=== PATIENT | male | born 1955 | race Caucasian/White ===

== ENCOUNTER 2024-09-17 09:39 | Inpatient (IN) | payer MEDICARE, SELFPAY ==
--- NOTE | ~2024-09-17 | CT_ITS ---
EXAMINATION: CT ABDOMEN AND PELVIS WITH CONTRAST CLINICAL INFORMATION: Black tarry stools COMPARISON: None available. TECHNIQUE: Multidetector volumetric images were obtained from the superior aspect of the liver through the pubic symphysis following administration 70 mL of Omnipaque 350 intravenous contrast. Sagittal and coronal reformatted images were obtained on the technologist's workstation. Oral contrast: No This CT examination was performed using dose optimization techniques as appropriate, variously including the following: *Automated exposure control *Adjustment of mA and/or kV according to patient size (this includes techniques or standardized protocols for targeted exams where dose is matched to indication/reason for exam; i.e. extremities or head) *Use of iterative reconstruction technique DLP: 1464 mGY*cm FINDINGS: LUNG BASES: Linear density in the region of the minor fissure and right middle lobe could relate to pleural thickening, scarring, and/or subsegmental atelectasis. LIVER, GALLBLADDER, AND BILIARY TREE: Mild diffuse fatty changes present throughout the liver. The gallbladder is unremarkable with no evidence of radiopaque gallstones, gallbladder wall thickening, or obvious pericholecystic inflammatory changes. PANCREAS: Unremarkable. SPLEEN: The spleen is enlarged with a long axis of 17.5 cm ADRENAL GLANDS: Unremarkable. KIDNEYS AND URETERS: The kidneys are normal in size, shape, and attenuation. No hydronephrosis, hydroureter, or calculi seen. No perinephric stranding. BLADDER: Unremarkable. GASTROINTESTINAL TRACT: The region of the gastric antrum and pylorus appears thickened, but this could be due to lack of distention. The small and large bowel are unremarkable. The appendix is unremarkable. ABDOMINAL WALL: 8 mm umbilical hernia contains normal density fat. LYMPH NODES: Normal. VASCULAR: Mild multifocal atherosclerotic calcific lesions are present in the abdominal aorta and common iliac and right common femoral arteries PELVIC VISCERA: Unremarkable. OSSEOUS STRUCTURES: There is bony fusion of the superior ligamentous portion of the right SI joint. There are osteophytes along the rim both acetabular roofs and a small degenerative cyst in the anterior right femoral head neck junction. Lower thoracic and upper lumbar spine shows evidence of syndesmophyte formation. There is also osseous bridging of the tips of the spinous processes at the thoracolumbar junction. CT/CT abdomen pelvis w IV con IMPRESSION: The gastric antrum and pyloric region appears thickened. This could be due to nondistention, but underlying peptic ulcer disease is not ruled out. Splenomegaly Fatty liver There is bony fusion of the upper right SI joint and the tips of the spinous processes at the thoracolumbar junction with evidence of syndesmophytes and bridging osteophytes in the thoracic lumbar spine raising question of ankylosing spondylitis. Fleischner guidelines were followed. Electronically signed by: Jerman Levine MD 09/17/2024 12:53 PM EDT
--- NOTE | ~2024-09-17 | CT_ITS ---
EXAMINATION: CT HEAD WITHOUT IV CONTRAST HISTORY: fall, head injury. TECHNIQUE: Unenhanced helical CT of the head was performed per standard departmental protocol. Coronal and sagittal reformats of the head were also evaluated. One or more of the following techniques was used for dose reduction: Automated exposure control, adjustment of the mA and/or kV according to patient size, use of iterative reconstruction technique. DLP: 779 mGy-cm COMPARISON: There are no prior studies available for comparison. FINDINGS: BRAIN: The brain parenchyma is unremarkable. There is normal villegas/white differentiation. The ventricular system is normal in size and configuration. There is no mass effect or midline shift. No intra- or extra-axial fluid collections are identified. SINUSES: There is debris in the left frontal sinus. There is mucosal thickening in the ethmoid and right sphenoid sinuses. There are polyps versus mucous retention cysts in the bilateral maxillary sinuses. The mastoid air cells and middle ear cavities are well pneumatized. ORBITS: The visualized orbits are unremarkable. BONES/SOFT TISSUES: The extracranial soft tissues are unremarkable. The calvarium is intact. No suspicious lytic or sclerotic lesions. CT/CT head/brain wo IV con IMPRESSION: No acute intracranial abnormality. Electronically signed by: Ludwig Thomas MD 09/17/2024 12:51 PM EDT
--- NOTE | ~2024-09-17 | XR_ITS ---
EXAMINATION: XR CHEST 1 VIEW HISTORY: sob COMPARISON: There are no prior studies available for comparison. FINDINGS: A single AP portable view of the chest performed at 10:26 AM is submitted. There is linear subsegmental atelectasis versus scarring at the right lung base. Additional patchy airspace opacity may be present, although evaluation is limited on this AP portable view. The left lung is clear. There is no pleural effusion, pneumothorax, or pulmonary vascular congestion. The heart is normal in size. There is degenerative disc disease of the spine. XR/XR chest 1V IMPRESSION: Bibasilar subsegmental atelectasis versus scarring. Possible additional airspace opacity at the right lung base. PA and lateral views are recommended when the patient is able. Electronically signed by: Ludwig Thomas MD 09/17/2024 10:43 AM EDT
[2024-09-17 09:48] VITALS: BP 126/77; PULSE 102; RESP 16; TEMP 36.9; O2SAT 99; BMI 32.9
--- NOTE | 2024-09-17 09:53 | ECG_ITS ---
Test Reason : tachy Blood Pressure : */* mmHG Vent. Rate : 104 BPM Atrial Rate : 104 BPM P-R Int : 138 ms QRS Dur : 78 ms QT Int : 322 ms P-R-T Axes : 37 13 42 degrees QTcB Int : 423 ms Sinus tachycardia Otherwise normal ECG No previous ECGs available Referred By: Generic ED Physician Electronically Signed By: LUAN FLORES
--- NOTE | 2024-09-17 10:06 | PC.NURSE ---
patient presented to the ED from home, alert and oriented x3. patient has flu two weeks ago, has been having increased weakness. patient states he had dark tarry stool last night x1 and this mornign x2 with bright red bleeding. patient endorses sob. patient states he had a fall due to on going weakness, noted to have abrasion to left shoulder, patient denies any pain. patient noted to be in sinus tach, rate low 100s. afebrile, rectal temp 98.5. patient skin is pale, cool and diaphoretic. EMS gave 500cc normal saline, thru #20 RAC, additional IV access obtained #18 in LFA, labs drawn and sent.
--- NOTE | 2024-09-17 10:06 | ED.GENADULT ---
HPI - General Adult General Chief complaint: General Medical Stated complaint: WEAK,DARK/TARRY STOOLS,COOL/PALE/SWEATY PER EMS Time Seen by Provider: 09/17/24 10:06 Source: patient, family and EMS Mode of arrival: EMS Limitations: no limitations History of Present Illness ED Provider: HPI narrative: 69-year-old male, not on any medications, remote alcohol use disorder cleaned for the past 9 years, presenting with generalized malaise worse in the past 2 weeks but really in the past few days, also he started noting black tarry stools yesterday and today x2, not on blood thinners, states initial symptoms started a proximally 2 weeks ago with flu-like symptoms and has not really recovered. Presented appearing diaphoretic, pale. Denies abdominal pain, denies chest pain or shortness of breath. No nausea no vomiting reported. Related Data Home Medications ?Medication ?Instructions ?Recorded ?Confirmed No Known Home Meds 09/17/24 09/17/24 Allergies Allergy/AdvReac Type Severity Reaction Status Date / Time No Known Allergies Allergy Verified 09/17/24 09:50 Review of Systems Constitutional: Constitutional: Reports as per [facility] Social History Social History Patient Tobacco Use Status: Never used Tobacco Advance Directives: No Advance Directives Information Provided: Yes Do you have a plan to hurt others: No Plan Nutrition Risks: No Nutritional Risk Physical Exam ED Vital Signs: Vital Signs - 24 hr 09/17/24 09:48 09/17/24 11:16 09/17/24 13:59 Temperature 98.5 F 97.8 F 97.4 F Pulse Rate 102 H 97 89 Respiratory Rate 16 16 20 Blood Pressure 126/77 116/68 116/61 Pulse Oximetry 99 96 96 Oxygen Delivery Method Room Air Room Air Room Air BMI result Body Mass Index 32.9 Const Other: Gen: ?Tired appearing, slightly pale HEENT: Dry oral mucosa, no scleral icterus, conjunctiva not pale Neck: Supple, no LAD CV: RRR, no obvious murmurs appreciated Resp: ?No wheezing rales rhonchi no stridor moving air well Abd: ?Bowel sounds are present, no tenderness no rebound no rigidity, rectal exam: With black tarry stools MSK: FROM, strength 5/5 all extremities Skin: Warm, dry, intact, Neuro: ?Alert and oriented x3, moving upper and lower extremities symmetrically, no obvious facial asymmetry noted Medications Administered Generic Name Dose Route Start Last Admin Trade Name Freq PRN Reason Stop Dose Admin Lactated Ringer's 1,000 mls @ 0 mls/hr 09/17/24 10:45 09/17/24 12:37 Lr IV Infused .Q0M LIU Infusion Wide Open Discontinued Medications Generic Name Dose Route Start Last Admin Trade Name Freq PRN Reason Stop Dose Admin Iohexol 85 ml 09/17/24 11:48 09/17/24 11:49 Iohexol 350 Mg/Ml 100 Ml Infus..Btl IV 09/17/24 11:49 85 ml ONCE ONE Administration Pantoprazole Sodium 40 mg 09/17/24 13:56 09/17/24 14:05 Pantoprazole Sodium 40 Mg/10 Ml Vial IVPUSH 09/17/24 13:57 40 mg ONCE ONE Administration Medical Decision Making Medical Decision Making [facility] Narrative: 10:40 patient presented with a weakness, fall earlier today, there is no evidence of head injury he did have some abrasion to the left shoulder blade area but we will scan his head, obvious black tarry stool on exam, H&H is slightly low, not to the transfusion at this time but we will anticipate that this will trend down, ultimately anticipate admission we will obtain CT to make sure there is no ongoing bleed, we will give fluids, make sure this is not cardiac related. 13:57 patient has remained stable, shows that there may be some evidence for PUD, which correlates to his presentation we will admit for further workup. Differential Diagnosis Differential Diagnoses: The differential diagnosis associated with the presentation includes Dehydration, electrolyte derangements, pneumonia, head injury, upper GI bleed, lower GI bleed Admission/Observation Consideration of admission/observation: Escalation of care including admission/observation considered Lab Data [facility] Lab Attestation statement: I reviewed the patient's lab results. 09/17/24 09:57 09/17/24 10:41 Labs: Lab Results 09/17/24 09/17/24 09/17/24 Range/Units 09:57 10:15 10:41 WBC 6.3 (4.8-10.8) X10*3/uL RBC 3.84 L (4.60-5.80) X10*6/uL Hgb 11.9 L (14.0-18.0) g/dl Hct 33.8 L (42.0-52.0) % MCV 88.0 (80.0-98.0) fL MCH 31.0 (27.0-33.0) pg MCHC 35.2 (31.0-36.0) g/dl RDW 12.7 (11.0-16.0) % Plt Count 60 L (160-400) X10*3/uL MPV 12.9 H (9.4-12.4) fL Immature Gran % (Auto) 0.5 H (0.0-0.4) % Neut % (Auto) 69.2 (45-73) % Lymph % (Auto) 20.3 (20-40) % [place] % (Auto) 9.8 (2-11) % Eos % (Auto) 0.0 (0-4) % Baso % (Auto) 0.2 (0-2) % Lymph # (Auto) 1.3 (1.2-4.9) X10*3/uL [place] # (Auto) 0.6 (0.1-1.2) X10*3/uL Eos # (Auto) 0.0 (0.0-0.4) X10*3/uL Baso # (Auto) 0.0 (0.0-0.2) X10*3/uL Abs Immat Gran (auto) 0.03 (0.00-0.03) X10*3/uL Absolute Neuts (auto) 4.3 (2.0-8.3) x10*3/uL Absolute Nucleated RBC 0.000 (0.0-0.012) X10*3/uL Nucleated RBC % (auto) 0.0 (0.0-0.2) /100WBC Smear Tech's Comments VERIFIED PT 15.5 H (10.9-12.4) SEC INR 1.4 H (0.9-1.1) Sodium 136 (135-145) mmol/L Potassium 4.1 (3.3-5.1) mmol/L Chloride 105 (96-108) mmol/L Carbon Dioxide 19 L (22-29) mmol/L Anion Gap 16 (12-20) BUN 42 H (9-16) mg/dL Creatinine 0.88 (0.5-1.4) mg/dL Estim Creat Clear Calc 88.3 Estimated GFR > 60 Random Glucose 143 H (60-115) mg/dL Lactic Acid 1.8 (0.5-2.0) mmol/L Calcium 7.9 L (8.4-10.2) mg/dL Total Bilirubin 0.6 (0.0-1.0) mg/dL AST 36 (5-37) U/L ALT 19 (0-40) U/L Alkaline Phosphatase 45 (39-117) U/L Troponin I High Sens 3.6 (<3.5-35.0) ng/L Total Protein 5.5 L (6.5-8.0) g/dL Albumin 2.9 L (3.5-5.0) g/dL Procalcitonin 1.68 ng/mL Stool Occult Blood (NEGATIVE) Respiratory Panel Denson Adenovirus (Rapid PCR) (Not Detect.) B.pert (TEM-PCR) (Not Detect.) B.parapertussis DNA PCR (Not Detect.) C. pneumoniae DNA (PCR) (Not Detect.) Coronavirus OC43 (PCR) (Not Detect.) Coronavirus HKU1 (PCR) (Not Detect.) Coronavirus 229E (PCR) (Not Detect.) Coronavirus NL63 (PCR) (Not Detect.) Human Metapneumovir PCR (Not Detect.) Influenza A (RT-PCR) (Not Detect.) Influenza A (H1) PCR (Not Detect.) Influ A (H1/09) PCR (Not Detect.) Influenza A (H3) PCR (Not Detect.) Influenza B (RT-PCR) (Not Detect.) M. pneumoniae (PCR) (Not Detect.) Parainfluenza 1 (PCR) (Not Detect.) Parainfluenza 2 (PCR) (Not Detect.) Parainfluenza 3 (PCR) (Not Detect.) Parainfluenza 4 (PCR) (Not Detect.) RSV (PCR) (Not Detect.) Entero/Rhino (PCR) (Not Detect.) SARS-CoV-2 RNA (RT-PCR) (Not Detect.) Blood Type O Positive Antibody Screen NEGATIVE 09/17/24 09/17/24 Range/Units 10:53 10:54 WBC (4.8-10.8) X10*3/uL RBC (4.60-5.80) X10*6/uL Hgb (14.0-18.0) g/dl Hct (42.0-52.0) % MCV (80.0-98.0) fL MCH (27.0-33.0) pg MCHC (31.0-36.0) g/dl RDW (11.0-16.0) % Plt Count (160-400) X10*3/uL MPV (9.4-12.4) fL Immature Gran % (Auto) (0.0-0.4) % Neut % (Auto) (45-73) % Lymph % (Auto) (20-40) % [place] % (Auto) (2-11) % Eos % (Auto) (0-4) % Baso % (Auto) (0-2) % Lymph # (Auto) (1.2-4.9) X10*3/uL [place] # (Auto) (0.1-1.2) X10*3/uL Eos # (Auto) (0.0-0.4) X10*3/uL Baso # (Auto) (0.0-0.2) X10*3/uL Abs Immat Gran (auto) (0.00-0.03) X10*3/uL Absolute Neuts (auto) (2.0-8.3) x10*3/uL Absolute Nucleated RBC (0.0-0.012) X10*3/uL Nucleated RBC % (auto) (0.0-0.2) /100WBC Smear Tech's Comments PT (10.9-12.4) SEC INR (0.9-1.1) Sodium (135-145) mmol/L Potassium (3.3-5.1) mmol/L Chloride (96-108) mmol/L Carbon Dioxide (22-29) mmol/L Anion Gap (12-20) BUN (9-16) mg/dL Creatinine (0.5-1.4) mg/dL Estim Creat Clear Calc Estimated GFR Random Glucose (60-115) mg/dL Lactic Acid (0.5-2.0) mmol/L Calcium (8.4-10.2) mg/dL Total Bilirubin (0.0-1.0) mg/dL AST (5-37) U/L ALT (0-40) U/L Alkaline Phosphatase (39-117) U/L Troponin I High Sens (<3.5-35.0) ng/L Total Protein (6.5-8.0) g/dL Albumin (3.5-5.0) g/dL Procalcitonin ng/mL Stool Occult Blood POSITIVE (NEGATIVE) Respiratory Panel Denson See Note Adenovirus (Rapid PCR) Not Detected (Not Detect.) B.pert (TEM-PCR) Not Detected (Not Detect.) B.parapertussis DNA PCR Not Detected (Not Detect.) C. pneumoniae DNA (PCR) Not Detected (Not Detect.) Coronavirus OC43 (PCR) Not Detected (Not Detect.) Coronavirus HKU1 (PCR) Not Detected (Not Detect.) Coronavirus 229E (PCR) Not Detected (Not Detect.) Coronavirus NL63 (PCR) Not Detected (Not Detect.) Human Metapneumovir PCR Not Detected (Not Detect.) Influenza A (RT-PCR) Not Detected (Not Detect.) Influenza A (H1) PCR Not Detected (Not Detect.) Influ A (H1/09) PCR Not Detected (Not Detect.) Influenza A (H3) PCR Not Detected (Not Detect.) Influenza B (RT-PCR) Not Detected (Not Detect.) M. pneumoniae (PCR) Not Detected (Not Detect.) Parainfluenza 1 (PCR) Not Detected (Not Detect.) Parainfluenza 2 (PCR) Not Detected (Not Detect.) Parainfluenza 3 (PCR) Not Detected (Not Detect.) Parainfluenza 4 (PCR) Not Detected (Not Detect.) RSV (PCR) Not Detected (Not Detect.) Entero/Rhino (PCR) Not Detected (Not Detect.) SARS-CoV-2 RNA (RT-PCR) Not Detected (Not Detect.) Blood Type Antibody Screen Independent Interpretation I performed an independent interpretation of an: EKG (104, otherwise normal ECG without dysrhythmia, AV nilesh blocks or ST-T changes to suspect underlying ACS, my independent interpretation) and Plain X-Ray (My independent chest xray interpretation: Lungs: Lungs are clear bilaterally without evidence of focal consolidation, pleural effusion, or pneumothorax. Likely atelectatic changes right lower lobe without obvious consolidations) Radiology Impression Discussion of test interpretation with radiology: I have reviewed the radiologist's reading. Radiologist Impression: CT/CT abdomen pelvis w IV con IMPRESSION: The gastric antrum and pyloric region appears thickened. This could be due to nondistention, but underlying peptic ulcer disease is not ruled out. Independent Historian Clinical information obtained from an independent historian. History obtained from or confirmed by: Spouse Discharge Plan Discharge Clinical Impression: Acute upper gastrointestinal bleeding Patient Disposition: Admitted As Inpatient
[2024-09-17 10:10] LABS: Basophils Percent Auto 0.2 % (0-2); Hematocrit 33.8 % (42.0-52.0); Hemoglobin 11.9 g/dl (14.0-18.0); Imm Gran Abs Auto 0.03 X10*3/uL (0.00-0.03); Imm Gran Pct Auto 0.5 % (0.0-0.4); Lymphocytes Absolute Auto 1.3 X10*3/uL (1.2-4.9); Lymphocytes Percent Auto 20.3 % (20-40); MANUAL DIFF FLAG SCAN; Mean Corpuscular HGB Conc 35.2 g/dl (31.0-36.0); Mean Platelet Volume 12.9 fL (9.4-12.4); Monocytes Absolute Auto 0.6 X10*3/uL (0.1-1.2); Monocytes Percent Auto 9.8 % (2-11); Neutrophils Absolute Auto 4.3 x10*3/uL (2.0-8.3); Neutrophils Percent Auto 69.2 % (45-73); Red Blood Count 3.84 X10*6/uL (4.60-5.80); Red Cell Distribution Width 12.7 % (11.0-16.0); SCAN SMEAR FLAG 1; White Blood Count 6.3 X10*3/uL (4.8-10.8)
[2024-09-17 10:12] LABS: Platelet Count 60 X10*3/uL (160-400)
[2024-09-17 10:25] LABS: Lactic Acid 1.8 mmol/L (0.5-2.0)
[2024-09-17 10:38] LABS: INTERNATIONAL NORM RATIO 1.4 (0.9-1.1); Prothrombin Time 15.5 SEC (10.9-12.4)
[2024-09-17 10:45] LABS: SLIDE REVIEW VERIFIED
[2024-09-17 11:02] LABS: OBS Int Ctl Valid YES; OBS1 POSITIVE (NEGATIVE)
[2024-09-17 11:12] LABS: Troponin-I High Sensitivity 3.6 ng/L (<3.5-35.0)
[2024-09-17 11:14] LABS: Alanine Aminotransferase 19 U/L (0-40); Albumin Level 2.9 g/dL (3.5-5.0); Anion Gap 16 (12-20); Aspartate Amino Transferase 36 U/L (5-37); Bilirubin Total 0.6 mg/dL (0.0-1.0); Blood Urea Nitrogen 42 mg/dL (9-16); Calcium 7.9 mg/dL (8.4-10.2); Carbon Dioxide 19 mmol/L (22-29); Chloride 105 mmol/L (96-108); Creatinine Clr Calc Pharmacy 88.3; Estimated Glomerular Filt Rate > 60; Glucose Random 143 mg/dL (60-115); Potassium 4.1 mmol/L (3.3-5.1); Sodium 136 mmol/L (135-145); Total Protein 5.5 g/dL (6.5-8.0)
[2024-09-17 11:16] VITALS: BP 116/68; PULSE 97; RESP 16; TEMP 36.6; O2SAT 96
[2024-09-17] MEDS: Lactated Ringers 1,000 ML 999 ML IV (11:16)
[2024-09-17] MEDS: iohexoL 350 MG/ML 100 ML INFUS..BTL 85 ML IV (11:49)
[2024-09-17 12:56] LABS: Alkaline Phosphatase 45 U/L (39-117)
[2024-09-17 13:11] LABS: Adenovirus PCR Not Detected (Not Detect.); Bordetella parapertussis PCR Not Detected (Not Detect.); Bordetella pertussis PCR Not Detected (Not Detect.); Chlamydia pneumoniae PCR Not Detected (Not Detect.); Coronavirus 229E PCR Not Detected (Not Detect.); Coronavirus HKU1 PCR Not Detected (Not Detect.); Coronavirus NL63 PCR Not Detected (Not Detect.); Coronavirus OC43 PCR Not Detected (Not Detect.); Human metapneumovirus PCR Not Detected (Not Detect.); Influenza A PCR Not Detected (Not Detect.); Influenza B PCR Not Detected (Not Detect.); Mycoplasma pneumoniae PCR Not Detected (Not Detect.); Parainfluenza 1 PCR Not Detected (Not Detect.); Parainfluenza 2 PCR Not Detected (Not Detect.); Parainfluenza 3 PCR Not Detected (Not Detect.); Parainfluenza 4 PCR Not Detected (Not Detect.); RSV PCR Not Detected (Not Detect.); Rhino/Enterovirus PCR Not Detected (Not Detect.)
--- NOTE | 2024-09-17 13:16 | MHC.EDTECH ---
pt ambulated from bathroom back to bed. C/O extreme fatigue. Stool bloody. RYLAND ross.
--- NOTE | 2024-09-17 13:16 | PC.NURSE ---
patient brought to bathroom via wheelchair, patient endorses bloody stool
[2024-09-17 13:30] LABS: Influenza A H1 PCR Not Detected (Not Detect.); Influenza A H1-2009 PCR Not Detected (Not Detect.); Influenza A H3 PCR Not Detected (Not Detect.); SARS-CoV-2 PCR Not Detected (Not Detect.)
[2024-09-17 13:59] VITALS: BP 116/61; PULSE 89; RESP 20; TEMP 36.3; O2SAT 96
[2024-09-17] MEDS: Pantoprazole Sodium 40 MG/10 ML VIAL IVPUSH (14:05)
--- NOTE | 2024-09-17 14:12 | PC.NURSE ---
patient is resting quietly at this time, resp even and unlabored. patient skin warm and dry. patient HR in 80s, normal sinus rhythm. patient is alert and oriented x3. patient states he feels weak, states he has not seen a doctor in 10-15 years.
--- NOTE | 2024-09-17 14:42 | PHA.MEDREC ---
Addendum entered by Kyle Cody PharmD 09/17/24 14:43: reviewed Original Note: Pharmacy Consult ? Medication Reconciliation Pharmacy has completed the medication reconciliation. Patient states he is not taking any medications.
--- NOTE | 2024-09-17 14:46 | PM.IMHP ---
History of Present Illness Date of Service: 09/17/24 Attending physician on admission: Arlet Villagomez Chief Complaint: Weakness, fall at home Pt is a 69-year-old male with a PMH significant for PTSD, alcohol use disorder sober for over 9 years, not on home meds but has not followed with PCP in over 10 years?who presents to the ED with?black-colored and bloody stool since yesterday. Pt reports last night noticed that his stool was black in color and tarry. No BRBPR at that time. Earlier this morning pt awoke and felt lightheaded, dizzy, and weak. Fell while trying to walk to the bathroom, striking his left shoulder on the dresser. This morning after awakening patient's stool ?looked more like blood? with a mixture of black and dark red. Pt had additional bowel movement where stool was demurrage worker in color and blood was red and pink. No abdominal pain. Pt denies any nausea, vomiting. Did experience some acid reflux-like symptoms over the past few days, which is abnormal for him. No fever, chills. Denies chest pain/pressure, palpitations. Currently no SOB or cough. No difficulty breathing. Pt notes that 2-1/2 weeks ago had flu-like symptoms with fever, chills, and myalgias. No cough or SOB. Symptoms resolved within 1 week from onset. In the ED pt was tachycardic up to 102, vitals otherwise stable and WNL. Labs were significant for stool positive for occult blood, H&H 11.9/33.8 (baseline unknown), PT 15.5, INR 1.4, bicarb 19, and BUN 42. No leukocytosis. No significant electrolyte abnormalities. Respiratory panel negative. CXR showed bibasilar subsegmental atelectasis vs scarring with possible airspace opacity in right lung base. CT?of head negative for acute intracranial abnormality. CT of abdomen and pelvis showing thickening of gastric antrum and pyloric region, possibly secondary to PUD. Also showed fatty liver, splenomegaly, possible ankylosing spoldylitis. EKG demonstrated sinus tachycardia of 104 without evidence of significant ST elevations depressions. Pt was treated in the ED with IVF, and pantoprazole IV. Pt is admitted to the hospital for treatment and further evaluation of melena concerning for UGIB. Review of Systems Review of Systems: Negative except for that which is stated in the [facility] Medical History (Updated 09/17/24 @ 18:24 by ERLINDA Jackson) Alcohol use disorder PTSD (post-traumatic stress disorder) Social History Patient Tobacco Use Status: Never used Tobacco Advance Directives: No Advance Directives Information Provided: Yes Do you have a plan to hurt others: No Plan Nutrition Risks: No Nutritional Risk Meds Allergies Allergy/AdvReac Type Severity Reaction Status Date / Time No Known Allergies Allergy Verified 09/17/24 09:50 Active Medications: Current Medications Lactated Ringer's (Lr) 1,000 mls @ 0 mls/hr IV .Q0M LIU Last Infusion: 09/17/24 12:37 Dose: Infused Home Medications ?Medication ?Instructions ?Recorded ?Confirmed ?Last Taken ?Type No Known Home Meds 09/17/24 09/17/24 Unknown History Physical Exam Vital Signs and Narrative: Vital Signs: Last Vital Signs Temp 97.4 F 09/17/24 13:59 Pulse 89 09/17/24 13:59 Resp 20 09/17/24 13:59 BP 116/61 09/17/24 13:59 Pulse Ox 96 09/17/24 13:59 O2 Del Method Room Air 09/17/24 13:59 BMI result Body Mass Index 32.9 General: AOx3, no acute distress Resp: CTA bilaterally CVS: S1, S2, RRR GI: +BS, NT, no distention Skin: Warm, dry Neuro: Cranial nerves II-XII grossly intact bilaterally. Motor grossly intact bilaterally Extremities: No edema Psych: Appropriate affect Results Labs 09/17/24 17:35 09/17/24 10:41 Labs: Laboratory Results - last 24 hr 09/17/24 09/17/24 09/17/24 09:57 10:15 10:41 MCV 88.0 MCH 31.0 MCHC 35.2 RDW 12.7 Plt Count 60 L MPV 12.9 H Immature Gran % (Auto) 0.5 H Neut % (Auto) 69.2 Lymph % (Auto) 20.3 Petroleum % (Auto) 9.8 Eos % (Auto) 0.0 Baso % (Auto) 0.2 Lymph # (Auto) 1.3 Petroleum # (Auto) 0.6 Eos # (Auto) 0.0 Baso # (Auto) 0.0 Abs Immat Gran (auto) 0.03 Absolute Neuts (auto) 4.3 Absolute Nucleated RBC 0.000 Nucleated RBC % (auto) 0.0 Smear Tech's Comments VERIFIED PT 15.5 H INR 1.4 H Anion Gap 16 Estim Creat Clear Calc 88.3 Estimated GFR > 60 Random Glucose 143 H Lactic Acid 1.8 Calcium 7.9 L Total Bilirubin 0.6 AST 36 ALT 19 Alkaline Phosphatase 45 Troponin I High Sens 3.6 Total Protein 5.5 L Albumin 2.9 L Stool Occult Blood Respiratory Panel Denson Adenovirus (Rapid PCR) B.pert (TEM-PCR) B.parapertussis DNA PCR C. pneumoniae DNA (PCR) Coronavirus OC43 (PCR) Coronavirus HKU1 (PCR) Coronavirus 229E (PCR) Coronavirus NL63 (PCR) Human Metapneumovir PCR Influenza A (RT-PCR) Influenza A (H1) PCR Influ A (H1/09) PCR Influenza A (H3) PCR Influenza B (RT-PCR) M. pneumoniae (PCR) Parainfluenza 1 (PCR) Parainfluenza 2 (PCR) Parainfluenza 3 (PCR) Parainfluenza 4 (PCR) RSV (PCR) Entero/Rhino (PCR) SARS-CoV-2 RNA (RT-PCR) Blood Type O Positive Antibody Screen NEGATIVE 09/17/24 09/17/24 10:53 10:54 MCV MCH MCHC RDW Plt Count MPV Immature Gran % (Auto) Neut % (Auto) Lymph % (Auto) Petroleum % (Auto) Eos % (Auto) Baso % (Auto) Lymph # (Auto) Petroleum # (Auto) Eos # (Auto) Baso # (Auto) Abs Immat Gran (auto) Absolute Neuts (auto) Absolute Nucleated RBC Nucleated RBC % (auto) Smear Tech's Comments PT INR Anion Gap Estim Creat Clear Calc Estimated GFR Random Glucose Lactic Acid Calcium Total Bilirubin AST ALT Alkaline Phosphatase Troponin I High Sens Total Protein Albumin Stool Occult Blood POSITIVE Respiratory Panel Denson See Note Adenovirus (Rapid PCR) Not Detected B.pert (TEM-PCR) Not Detected B.parapertussis DNA PCR Not Detected C. pneumoniae DNA (PCR) Not Detected Coronavirus OC43 (PCR) Not Detected Coronavirus HKU1 (PCR) Not Detected Coronavirus 229E (PCR) Not Detected Coronavirus NL63 (PCR) Not Detected Human Metapneumovir PCR Not Detected Influenza A (RT-PCR) Not Detected Influenza A (H1) PCR Not Detected Influ A (H1/09) PCR Not Detected Influenza A (H3) PCR Not Detected Influenza B (RT-PCR) Not Detected M. pneumoniae (PCR) Not Detected Parainfluenza 1 (PCR) Not Detected Parainfluenza 2 (PCR) Not Detected Parainfluenza 3 (PCR) Not Detected Parainfluenza 4 (PCR) Not Detected RSV (PCR) Not Detected Entero/Rhino (PCR) Not Detected SARS-CoV-2 RNA (RT-PCR) Not Detected Blood Type Antibody Screen Imaging Radiologist's Impressions: Impressions Chest X-Ray 09/17/24 09:54 IMPRESSION: Bibasilar subsegmental atelectasis versus scarring. Possible additional airspace opacity at the right lung base. PA and lateral views are recommended when the patient is able. Electronically signed by: Ludwig Thomas MD 09/17/2024 10:43 AM EDT RP Abdomen/Pelvis CT 09/17/24 10:36 IMPRESSION: The gastric antrum and pyloric region appears thickened. This could be due to nondistention, but underlying peptic ulcer disease is not ruled out. Splenomegaly Fatty liver There is bony fusion of the upper right SI joint and the tips of the spinous processes at the thoracolumbar junction with evidence of syndesmophytes and bridging osteophytes in the thoracic lumbar spine raising question of ankylosing spondylitis. Fleischner guidelines were followed. Electronically signed by: Jerman Levine MD 09/17/2024 12:53 PM EDT RP Head CT 09/17/24 10:39 IMPRESSION: No acute intracranial abnormality. Electronically signed by: Ludwig Thomas MD 09/17/2024 12:51 PM EDT RP Assessment and Plan (1) Melena: Status: Acute Plan Pt is a 69-year-old male with a PMH significant for PTSD, alcohol use disorder sober for over 9 years, not on home meds but has not followed with PCP in over 10 years?who presents to the ED with?black-colored and bloody stool since yesterday. Pt was treated in the ED with IVF, and pantoprazole IV. Pt is admitted to the hospital for treatment and further evaluation of melena concerning for UGIB. Melena Pt with melena and dark red blood per rectum since yesterday Lightheadedness, dizziness, weakness with fall at home; acid reflux symptoms the past few days, no abdominal pain H&H 11.9/35.8, baseline unknown CT showing thickening of gastric antrum and pyloric region, possibly secondary to PUD; [place] heme+ Will treat with Protonix b.i.d. GI consult NPO past midnight for possible EGD in the morning Trend H&H Question of pneumonia Pt with flu-like symptoms 2.5 weeks ago, resolved after 1 week Currently asymptomatic: no SOB, difficulty breathing, or cough Respiratory panel negative CXR with possible opacity in right lung base, elevated procalcitonin Will empirically treat with oral Doxy, started 09/17/2024 No sepsis; tachycardia secondary to hypovolemia Alcohol use disorder In remission for past 9 years Pt with splenomegaly, fatty liver, thrombocytopenia Trend platelet levels Full Code Attending:?Dr. Villagomez DVT Prophylaxis: Lovenox Pt will require a hospitalization of at least two nights for treatment of?melena in the setting of likely UGIB requiring hospital level care for close H&H monitoring, IV ppi, and specialist consultation with GI with likely EGD in the morning. Quality Stroke Does the patient have a stroke diagnosis?: No VTE Prior VTE?: No VTE Risk Level:: Medical - moderate - high VTE Device Contraindication: N/A - Device Ordered VTE Drug Contraindication: Treatment Not Indicated
[2024-09-17 15:32] LABS: Procalcitonin 1.68 ng/mL
--- NOTE | 2024-09-17 17:37 | MHC.EDTECH ---
pt ambulating to bathroom with a steady gait and use of walker
[2024-09-17 17:42] LABS: Hematocrit 30.4 % (42.0-52.0); Hemoglobin 10.8 g/dl (14.0-18.0)
--- NOTE | 2024-09-17 18:01 | MHC.EDTECH ---
pt endorsed light pink blood with black stool while in bathroom, RN made aware
[2024-09-17] MEDS: Lactated Ringers 1,000 ML 100 ML IVCONT (18:27)
[2024-09-17 19:27] VITALS: BMI 33.0
[2024-09-17 20:00] VITALS: BP 131/66; PULSE 98; RESP 18; TEMP 36.6; O2SAT 96
[2024-09-17] MEDS: Doxycycline Monohydrate 100 MG CAPSULE PO (20:38)
[2024-09-17 23:31] VITALS: BP 119/60; PULSE 84; RESP 18; TEMP 36.6; O2SAT 97
[2024-09-18] VITALS (8 sets, daily range): BP systolic 109–166; BP diastolic 57–83; PULSE 85–103; RESP 16–18; TEMP 36–36.6; O2SAT 95–100
[2024-09-18] MEDS: Pantoprazole Sodium 40 MG/10 ML VIAL IVPUSH ×2 (05:44→16:59)
[2024-09-18 06:20] LABS: Hematocrit 28.2 % (42.0-52.0); Hemoglobin 9.9 g/dl (14.0-18.0); Mean Corpuscular HGB Conc 35.1 g/dl (31.0-36.0); Mean Corpuscular Hemoglobin 30.7 pg (27.0-33.0); Mean Corpuscular Volume 87.6 fL (80.0-98.0); Red Blood Count 3.22 X10*6/uL (4.60-5.80); Red Cell Distribution Width 12.9 % (11.0-16.0); White Blood Count 5.3 X10*3/uL (4.8-10.8)
[2024-09-18 06:27] LABS: Platelet Count 72 X10*3/uL (160-400)
[2024-09-18] MEDS: Doxycycline Monohydrate 100 MG CAPSULE PO ×2 (07:33→18:17)
[2024-09-18] MEDS: 0.9 % Sodium Chloride Flush 3 ML SYRINGE IVFLUSH ×3 (07:34→20:04)
[2024-09-18] MEDS: Phytonadione (Vit K1) Oral 10 MG/ML AMPUL PO (08:15)
--- NOTE | 2024-09-18 09:02 | MHC.CM.PN ---
IMM 09/18. Pt self-care, lives at home with his , she will transport him home at discharge. Education provided and new HCP completed with pt, now on file. Pt currently does not have a PCP, local list of PCP's given to pt.
--- NOTE | 2024-09-18 09:28 | MHC.SHP ---
Pre-Procedural Eval Section A - 24 Hr Update-Section A only Date of Service: 09/18/24 The patient is an INPATIENT: Yes Changes since office visit: No Cold of Flu in the past 2 weeks, No New Medical Problems, No Changes in Medication and No Patient answered all questions The patient has been examined within 24 hours of the surgical procedure. The History & Physical has been completed within 30 days and I have reviewed it.: Yes Section B - Complete if H&P > 30 days Chief Complaint: ?UGIB Allergies: Allergies Allergy/AdvReac Type Severity Reaction Status Date / Time No Known Allergies Allergy Verified 09/17/24 09:50 Plan I have reviewed the history and physical and performed a pertinent physical examination on my patient. No changes have occurred unless specified. Time Spent With Patient Time: Total time managing care of this patient today ____ minutes.
--- NOTE | 2024-09-18 09:28 | PM.EVENT ---
Event Note Date of Service: 09/18/24 Event Note: GI consult dictated Plan for egd later today to eval for source of GI bleeding. Time Spent With Patient Time: Total time managing care of this patient today ____ minutes.
--- NOTE | 2024-09-18 09:47 | HO.ANESPROP2 ---
HPI - Anesthesia Eval Consult details Narrative: upper endo PMFSH Active Problems Active Problems: All Active Problems Melena (Acute) Acute upper gastrointestinal bleeding (Acute) Past Medical History Medical History Alcohol use disorder PTSD (post-traumatic stress disorder) Family History Family history of problems with anesthesia: No Surgical History History of Problems with Anesthesia: No Social History Social History Household Members: Spouse Housing: House Do you presently have visiting nurse or other home services: No Patient Tobacco Use Status: Never used Tobacco Smoked in Last 30 Days: No e-Cigarette/Vaping Use: Never Used Patient Interested in Nicotine Replacement: No Patient Given Instructions on How to Stop Smoking: No Second Hand Smoke Exposure: No Use of substances other than those prescribed or required for medical reasons: No Substance Use Type Other:: has been clean and sober for over 9 years Currently Displaying Signs/Symptoms of Drug Intoxication Withdrawal: No Have you been hit, kicked, punched, or otherwise hurt by someone within the past year? If so, by whom?: No Do you feel safe in your current relationship?: Yes Is there a partner from a previous relationship who is making you feel unsafe now?: No Are you made to feel afraid or neglected: No Are you DNR?: No Advance Directives: No Advance Directives Information Provided: Yes Do you have a plan to hurt others: No Plan Recently lost weight without trying: Unsure Eating poorly because of decreased appetite: Yes Nutrition Risks: No Nutritional Risk Poor oral hygiene: No service: No Meds Allergies Allergy/AdvReac Type Severity Reaction Status Date / Time No Known Allergies Allergy Verified 09/18/24 09:46 Active Medications: Current Medications Acetaminophen (Acetaminophen 325 Mg Tablet) 650 mg PO Q6H PRN PRN Reason: Pain, Mild 1-3,fever,headache Calcium Carbonate (Calcium Carbonate 750 Mg Tab.Chew) 750 mg PO Q4H PRN PRN Reason: Heartburn Doxycycline Monohydrate (Doxycycline Monohydrate 100 Mg Capsule) 100 mg PO Q12H [facility] Stop: 09/24/24 18:59 Last Admin: 09/18/24 07:33 Dose: 100 mg Lactated Ringer's (Lr) 1,000 mls @ 0 mls/hr IV .Q0M [facility] Last Infusion: 09/17/24 12:37 Dose: Infused Magnesium Hydroxide (Milk Of Magnesia 30 Ml Oral.Susp) 30 ml PO DAILY PRN PRN Reason: Constipation Melatonin (Melatonin 3 Mg Tablet) 6 mg PO BEDTIME PRN PRN Reason: Insomnia Ondansetron HCl (Ondansetron Hcl 4 Mg/2 Ml Vial) 4 mg IVPUSH Q8H PRN PRN Reason: Nausea and Vomiting Pantoprazole Sodium (Pantoprazole Sodium 40 Mg/10 Ml Vial) 40 mg IVPUSH BID@0630,1630 [facility] Last Admin: 09/18/24 05:44 Dose: 40 mg Sodium Chloride (0.9 % Sodium Chloride Flush 3 Ml Syringe) 3 ml IVFLUSH QSHIFT [facility] Last Admin: 09/18/24 07:34 Dose: 3 ml Home Medications ?Medication ?Instructions ?Recorded ?Confirmed ?Last Taken ?Type No Known Home Meds 09/17/24 09/17/24 Unknown History Exam Height,Weight and Vital Signs: Height 5 ft 7 in Weight 95.6 kg Last Vital Signs Temp 97.6 F 09/18/24 09:36 Pulse 95 09/18/24 09:36 Resp 17 09/18/24 09:36 BP 125/76 09/18/24 09:36 Pulse Ox 97 09/18/24 09:36 O2 Del Method Room Air 09/18/24 09:36 Pertinent Lab Results Pertinent Lab Results: Laboratory Tests 09/17/24 09/17/24 09/17/24 09:57 10:15 10:41 WBC 6.3 RBC 3.84 L Hgb 11.9 L Hct 33.8 L MCV 88.0 MCH 31.0 MCHC 35.2 RDW 12.7 Plt Count 60 L MPV 12.9 H Immature Gran % (Auto) 0.5 H Neut % (Auto) 69.2 Lymph % (Auto) 20.3 Bonner % (Auto) 9.8 Eos % (Auto) 0.0 Baso % (Auto) 0.2 Lymph # (Auto) 1.3 Bonner # (Auto) 0.6 Eos # (Auto) 0.0 Baso # (Auto) 0.0 Abs Immat Gran (auto) 0.03 Absolute Neuts (auto) 4.3 Absolute Nucleated RBC 0.000 Nucleated RBC % (auto) 0.0 Smear Tech's Comments VERIFIED PT 15.5 H INR 1.4 H Sodium 136 Potassium 4.1 Chloride 105 Carbon Dioxide 19 L Anion Gap 16 BUN 42 H Creatinine 0.88 Estim Creat Clear Calc 88.3 Estimated GFR > 60 Random Glucose 143 H Lactic Acid 1.8 Calcium 7.9 L Total Bilirubin 0.6 AST 36 ALT 19 Alkaline Phosphatase 45 Troponin I High Sens 3.6 Total Protein 5.5 L Albumin 2.9 L Procalcitonin 1.68 Stool Occult Blood Respiratory Panel Denson Adenovirus (Rapid PCR) B.pert (TEM-PCR) B.parapertussis DNA PCR C. pneumoniae DNA (PCR) Coronavirus OC43 (PCR) Coronavirus HKU1 (PCR) Coronavirus 229E (PCR) Coronavirus NL63 (PCR) Human Metapneumovir PCR Influenza A (RT-PCR) Influenza A (H1) PCR Influ A (H1/09) PCR Influenza A (H3) PCR Influenza B (RT-PCR) M. pneumoniae (PCR) Parainfluenza 1 (PCR) Parainfluenza 2 (PCR) Parainfluenza 3 (PCR) Parainfluenza 4 (PCR) RSV (PCR) Entero/Rhino (PCR) SARS-CoV-2 RNA (RT-PCR) Blood Type O Positive Antibody Screen NEGATIVE 09/17/24 09/17/24 09/17/24 10:53 10:54 17:35 WBC RBC Hgb 10.8 L Hct 30.4 L MCV MCH MCHC RDW Plt Count MPV Immature Gran % (Auto) Neut % (Auto) Lymph % (Auto) Bonner % (Auto) Eos % (Auto) Baso % (Auto) Lymph # (Auto) Bonner # (Auto) Eos # (Auto) Baso # (Auto) Abs Immat Gran (auto) Absolute Neuts (auto) Absolute Nucleated RBC Nucleated RBC % (auto) Smear Tech's Comments PT INR Sodium Potassium Chloride Carbon Dioxide Anion Gap BUN Creatinine Estim Creat Clear Calc Estimated GFR Random Glucose Lactic Acid Calcium Total Bilirubin AST ALT Alkaline Phosphatase Troponin I High Sens Total Protein Albumin Procalcitonin Stool Occult Blood POSITIVE Respiratory Panel Denson See Note Adenovirus (Rapid PCR) Not Detected B.pert (TEM-PCR) Not Detected B.parapertussis DNA PCR Not Detected C. pneumoniae DNA (PCR) Not Detected Coronavirus OC43 (PCR) Not Detected Coronavirus HKU1 (PCR) Not Detected Coronavirus 229E (PCR) Not Detected Coronavirus NL63 (PCR) Not Detected Human Metapneumovir PCR Not Detected Influenza A (RT-PCR) Not Detected Influenza A (H1) PCR Not Detected Influ A (H1/) PCR Not Detected Influenza A (H3) PCR Not Detected Influenza B (RT-PCR) Not Detected M. pneumoniae (PCR) Not Detected Parainfluenza 1 (PCR) Not Detected Parainfluenza 2 (PCR) Not Detected Parainfluenza 3 (PCR) Not Detected Parainfluenza 4 (PCR) Not Detected RSV (PCR) Not Detected Entero/Rhino (PCR) Not Detected SARS-CoV-2 RNA (RT-PCR) Not Detected Blood Type Antibody Screen 09/18/24 05:55 WBC 5.3 RBC 3.22 L Hgb 9.9 L Hct 28.2 L MCV 87.6 MCH 30.7 MCHC 35.1 RDW 12.9 Plt Count 72 L MPV 13.0 H Immature Gran % (Auto) Neut % (Auto) Lymph % (Auto) Bonner % (Auto) Eos % (Auto) Baso % (Auto) Lymph # (Auto) Bonner # (Auto) Eos # (Auto) Baso # (Auto) Abs Immat Gran (auto) Absolute Neuts (auto) Absolute Nucleated RBC 0.000 Nucleated RBC % (auto) 0.0 Smear Tech's Comments PT INR Sodium Potassium Chloride Carbon Dioxide Anion Gap BUN Creatinine Estim Creat Clear Calc Estimated GFR Random Glucose Lactic Acid Calcium Total Bilirubin AST ALT Alkaline Phosphatase Troponin I High Sens Total Protein Albumin Procalcitonin Stool Occult Blood Respiratory Panel Denson Adenovirus (Rapid PCR) B.pert (TEM-PCR) B.parapertussis DNA PCR C. pneumoniae DNA (PCR) Coronavirus OC43 (PCR) Coronavirus HKU1 (PCR) Coronavirus 229E (PCR) Coronavirus NL63 (PCR) Human Metapneumovir PCR Influenza A (RT-PCR) Influenza A (H1) PCR Influ A (H1) PCR Influenza A (H3) PCR Influenza B (RT-PCR) M. pneumoniae (PCR) Parainfluenza 1 (PCR) Parainfluenza 2 (PCR) Parainfluenza 3 (PCR) Parainfluenza 4 (PCR) RSV (PCR) Entero/Rhino (PCR) SARS-CoV-2 RNA (RT-PCR) Blood Type Antibody Screen Airway Mallampati Class: III TM Dist: >3cm Neck ROM: Full Heart: rrr Lungs: cta Assessment and Plan Assessment Anesthesia Assessment: Anesthesia Plan Discussed and Chart Reviewed Final Anesthetic Review Family History of Problems with Anesthesia: No History of Problems with Anesthesia: No NPO: Yes ASA Class: III Final Preanesthetic Review: No Changes in Pt Med Stat, Meds/Allgs Chart Reviewed, Consent Obtained/Reviewed and Anes Risks/Benef Reviewed Patient Risk: Intermediate Procedure Risk: Low Anesthetic Plan Anesthetic Plan: GA and MAC: Disposition: Standard PACU
--- NOTE | 2024-09-18 10:44 | PM.OP ---
Brief Operative Note Date of Service: 09/18/24 Pre-op diagnosis: gi bleed Post-op diagnosis: same Procedure: EGD Surgeon: Bill Ramos MD Anesthesia: MAC Was an Element Burner used for this Procedure?: No Estimated blood loss (mL): 10 Pathology: other Condition: stable Disposition: PACU
--- NOTE | 2024-09-18 10:53 | PM.EVENT ---
Event Note Date of Service: 09/18/24 Event Note: EGD erosive gastritis 3 duodenal ulcers, 1 treated with epi/cautery antral bxs taken advance diet follow hct cont ppi Time Spent With Patient Time: Total time managing care of this patient today ____ minutes.
--- NOTE | 2024-09-18 11:23 | OP_ITS ---
DATE OF SERVICE: 09/18/2024 SURGEON: Bill Ramos MD INDICATIONS: Upper GI bleeding. PREOPERATIVE DIAGNOSIS: POSTOPERATIVE DIAGNOSIS: PROCEDURE PERFORMED: Upper endoscopy with biopsy and control of hemorrhage. ESTIMATED BLOOD LOSS: COMPLICATIONS: ANESTHESIA: Monitored anesthesia care. ASSISTANTS: SPECIMENS: DESCRIPTION OF PROCEDURE: A history and physical were performed. The risks and benefits of the procedure were explained to the patient. Informed consent was obtained. The patient was placed in the left lateral decubitus position. The Olympus video gastroscope was introduced into the esophagus, stomach, and duodenum. Examination was performed. The scope was removed. He tolerated the procedure well and was returned to the recovery area in stable condition. FINDINGS: Esophagus: The esophagus was normal. Stomach: The stomach showed changes of erosive gastritis in the body and antrum. No ulceration was identified. No bleeding was seen. Antral biopsies were obtained to evaluate for H pylori. Duodenum: There were 3 good-sized duodenal ulcers at the junction of the bulb and 2nd portion. The largest measured approximately 2 cm, and there was a small area of oozing on the ulcer base with a small visible vessel. The ulcer was treated with injection of epinephrine (1:10,000) with a total of 5 mL and then the heater probe was used to cauterize the oozing site on the ulcer. Hemostasis was excellent at the termination of the procedure. No bleeding was seen elsewhere. The 2nd portion was otherwise normal. IMPRESSION: 1. Duodenal ulcers. 2. Erosive gastritis. RECOMMENDATION: 1. Continue IV proton pump inhibitor. 2. Advance diet. 3. Follow up the biopsy results. If H pylori is present, he will need treatment. MD ORESTES Colon/MALIAL / [phone]
[2024-09-18 12:22] LABS: Hematocrit 29.2 % (42.0-52.0); Hemoglobin 10.1 g/dl (14.0-18.0); Mean Corpuscular HGB Conc 34.6 g/dl (31.0-36.0); Mean Corpuscular Hemoglobin 30.8 pg (27.0-33.0); Mean Platelet Volume 12.8 fL (9.4-12.4); Red Blood Count 3.28 X10*6/uL (4.60-5.80); Red Cell Distribution Width 12.9 % (11.0-16.0); White Blood Count 5.3 X10*3/uL (4.8-10.8)
[2024-09-18 12:23] LABS: Platelet Count 80 X10*3/uL (160-400)
[2024-09-18 12:53] LABS: Alanine Aminotransferase 24 U/L (0-40); Albumin Level 2.9 g/dL (3.5-5.0); Alkaline Phosphatase 42 U/L (39-117); Anion Gap 12 (12-20); Aspartate Amino Transferase 36 U/L (5-37); Bilirubin Total 0.4 mg/dL (0.0-1.0); Blood Urea Nitrogen 30 mg/dL (9-16); Carbon Dioxide 24 mmol/L (22-29); Chloride 108 mmol/L (96-108); Creatinine Clr Calc Pharmacy 96.1; Estimated Glomerular Filt Rate > 60; Glucose Random 168 mg/dL (60-115); Lactate Dehydrogenase 214 U/L (118-273); Potassium 3.6 mmol/L (3.3-5.1); Sodium 140 mmol/L (135-145); Total Protein 5.6 g/dL (6.5-8.0)
[2024-09-18 12:57] LABS: HBS Num1 0.03 mIU/mL (0-7.99); HBc Num1 0.09 S/CO (0.00-0.79); HBsAGNum1 0.43 S/CO (0.00-0.99); HIV AB/AG Nonreactive (Nonreactive); Hepatitis B Core Antibody Nonreactive (Nonreactive); Hepatitis B Surface Antigen Negative (Negative); ~HepC Num1 0.17 S/CO (0.00-0.79); ~Hepatitis B Surface Antibody NONREACTIVE (Nonreactive); ~Hepatitis C Antibody Nonreactive (Nonreactive)
--- NOTE | 2024-09-18 14:00 | P.PNIM_ITS ---
Subjective Subjective Date of Service: 09/18/24 Interval History: EGD done, Hb stable sober x9yr Review of Systems Review of Systems: Yes all other systems are reviewed and are negative Physical Exam 2 Vital Signs: Vital Signs: Last Vital Signs Temp 98 F 09/18/24 11:24 Pulse 90 09/18/24 11:24 Resp 18 09/18/24 11:24 BP 156/77 H 09/18/24 11:24 Pulse Ox 98 09/18/24 11:24 O2 Del Method Room Air 09/18/24 11:24 O2 Flow Rate 6 09/18/24 10:46 BMI result Body Mass Index 33.0 Gen: in no acute distress HEENT: sclera anicteric, moist mucus membranes Neck: supple Lungs: clear to auscultation bilaterally Heart: regular rate and rhythm, no murmurs Abd: soft, non-tender, non-distended, splenomegaly Ext: no edema Skin: warm/well-perfused Neuro: alert and oriented x3, no focal findings Psych: appropriate affect Objective Data Active Medications Acetaminophen (Acetaminophen 325 Mg Tablet) 650 mg PO Q6H PRN PRN Reason: Pain, Mild 1-3,fever,headache Calcium Carbonate (Calcium Carbonate 750 Mg Tab.Chew) 750 mg PO Q4H PRN PRN Reason: Heartburn Doxycycline Monohydrate (Doxycycline Monohydrate 100 Mg Capsule) 100 mg PO Q12H [facility] Stop: 09/24/24 18:59 Last Admin: 09/18/24 07:33 Dose: 100 mg Documented By: LUIS Lactated Ringer's (Lr) 1,000 mls @ 0 mls/hr IV .Q0M [facility] Last Infusion: 09/17/24 12:37 Dose: Infused Documented By: ANA PAULA Magnesium Hydroxide (Milk Of Magnesia 30 Ml Oral.Susp) 30 ml PO DAILY PRN PRN Reason: Constipation Melatonin (Melatonin 3 Mg Tablet) 6 mg PO BEDTIME PRN PRN Reason: Insomnia Naloxone HCl (Naloxone Hcl 0.4 Mg/Ml Vial) 0.04 mg IVPUSH Q5M PRN PRN Reason: Excessive sedation or RR < 8 Ondansetron HCl (Ondansetron Hcl 4 Mg/2 Ml Vial) 4 mg IVPUSH Q8H PRN PRN Reason: Nausea and Vomiting Pantoprazole Sodium (Pantoprazole Sodium 40 Mg/10 Ml Vial) 40 mg IVPUSH BID@0630,1630 [facility] Last Admin: 09/18/24 05:44 Dose: 40 mg Documented By: RITU Sodium Chloride (0.9 % Sodium Chloride Flush 3 Ml Syringe) 3 ml IVFLUSH QSHIFT [facility] Last Admin: 09/18/24 07:34 Dose: 3 ml Documented By: LUIS Labs 09/18/24 12:15 09/18/24 12:15 Labs: Laboratory Results - last 24 hr 09/17/24 09/18/24 09/18/24 10:41 05:55 12:15 MCV 87.6 89.0 MCH 30.7 30.8 MCHC 35.1 34.6 RDW 12.9 12.9 Plt Count 72 L 80 L MPV 13.0 H 12.8 H Absolute Nucleated RBC 0.000 0.000 Nucleated RBC % (auto) 0.0 0.0 Anion Gap 12 Estim Creat Clear Calc 96.1 Estimated GFR > 60 Random Glucose 168 H Calcium 8.0 L Total Bilirubin 0.4 AST 36 ALT 24 Alkaline Phosphatase 42 Lactate Dehydrogenase 214 Total Protein 5.6 L Albumin 2.9 L Procalcitonin 1.68 Hep Bs Antigen Negative Hep Bs Antibody NONREACTIVE Hep B Core Total Ab Nonreactive Hepatitis C Ab (EIA) Nonreactive HIV 1&2 Ab/P24 Ag 4thGn Nonreactive Microbiology Microbiology Results: Microbiology 09/17/24 10:14 Blood Culture - Preliminary Blood - Venous No growth after 24 hours. 09/17/24 09:58 Blood Culture - Preliminary Blood - Venous No growth after 24 hours. Assessment and Plan (1) Acute upper gastrointestinal bleeding: Status: Acute Plan d2 for 69yo M with PTSD, AUD in remission [sober x9yr] presenting with melena, found to be anemic and thrombocyoptenic melena acute blood loss anemia due to GI duodenal ulcers - EGD 09/[address] Ramos showing duodenal ulcers x3 [1 treated with epinephrine + cautery] + erosive gastritis, biopsies taken - IV PPI - monitor CBC thrombocytopenia splenomegaly - unclear cause; will consult Heme-Onc. No cirrhosis on CT scan but pt has mild coagulopathy + low albumin. - HIV negative, LDH normal - pt lives surrounded by [place] and spends lots of time outside; will check tickborne PCR panel + serologies - monitor CBC question of pneumonia - PCT elevated, linear density in RML; treating empirically with doxycycline which would also cover anaplasma and Lyme but not Babesia VTE ppx - SCDs dispo - eventual home In my clinical judgment, the patient requires continued inpatient hospitalization for the following reasons: IV PPI, GI bleed Total time managing care of this patient today: 45 minutes. Quality Stroke Does the patient have a stroke diagnosis?: No VTE Prior VTE?: No VTE Risk Level:: Medical - moderate - high VTE Device Contraindication: N/A - Device Ordered VTE Drug Contraindication: Treatment Not Indicated
--- NOTE | 2024-09-18 14:18 | CONS_ITS ---
DATE OF SERVICE: 09/18/2024 REFERRING PHYSICIAN: MARI Sweet REASON FOR CONSULTATION: Melena and abnormal CT scan. HISTORY OF PRESENT ILLNESS: The patient is a pleasant, generally healthy 69-year-old man who was admitted to the hospital after presenting to the emergency room with complaints of weakness and melena, which began the day prior to admission. He had a history of flu-like symptoms a week or so before admission and did take occasional ibuprofen, and yesterday developed the onset of black tarry stools. There was no associated abdominal pain, nausea, or vomiting. He denies a prior history of peptic ulcer disease. He does not use alcohol, having been alcohol dependent in the past and sober for 9 years and does not smoke. He was evaluated in the emergency department with laboratory studies and imaging, which are reviewed. Rectal exam in the emergency department showed black tarry stools. He states his last bowel movement was earlier today. He also had a fall at home because he felt weak. Laboratory studies showed a hematocrit of 33.8 on admission, which dropped to 28.2 after IV hydration. Platelet count was also low at 60 and INR was slightly elevated, for which he has been given oral vitamin K. CT imaging of the abdomen and pelvis was obtained, which is reviewed. This showed thickening of the gastric antrum and pyloric region. There was splenomegaly and fatty change of the liver. PAST MEDICAL HISTORY: 1. Alcohol abuse, currently sober. 2. PTSD. CURRENT MEDICATIONS: His current medication list is reviewed in the chart. ALLERGIES: THERE ARE NONE REPORTED. FAMILY HISTORY: This is reviewed with the patient and is noncontributory. SOCIAL HISTORY: There is no current tobacco, alcohol, or substance abuse. REVIEW OF SYSTEMS: SKIN: No pruritus. HEENT: Negative. CARDIOPULMONARY: He denies shortness of breath or chest pain. GASTROINTESTINAL: As above. GENITOURINARY: Negative. NEUROPSYCHIATRIC: Negative. PHYSICAL EXAMINATION: GENERAL: Shows a pleasant male, sitting comfortably in a chair. VITAL SIGNS: Reviewed in the electronic medical record and are stable. SKIN: Anicteric. HEENT: Shows no scleral icterus. NECK: Without lymphadenopathy or thyromegaly. LUNGS: Clear. HEART: Shows a regular rate and rhythm. S1, S2. No murmur. ABDOMEN: Soft without focal masses or tenderness. Bowel sounds are present. No organomegaly is noted. IMPRESSION: Melena and abnormal CT scan. This appears consistent with possible gastritis or peptic ulcer disease. At this time, he appears stable. He has not required blood transfusions. I did recommend that he undergo upper endoscopy for diagnosis and evaluation. I have discussed risks and benefits of the procedure with him. He understands these and agrees to proceed. This will be scheduled for later today. MD ORESTES Colon/FAITH / [phone]
[2024-09-19 03:49] VITALS: BP 146/77; PULSE 89; RESP 16; TEMP 36.2; O2SAT 99
[2024-09-19] MEDS: Pantoprazole Sodium 40 MG/10 ML VIAL IVPUSH (05:50)
[2024-09-19] MEDS: Doxycycline Monohydrate 100 MG CAPSULE PO (06:08)
[2024-09-19 06:20] LABS: Prothrombin Time 11.9 SEC (10.9-12.4)
[2024-09-19 06:32] LABS: Hemoglobin 9.3 g/dl (14.0-18.0); Mean Corpuscular HGB Conc 34.4 g/dl (31.0-36.0); Mean Corpuscular Hemoglobin 30.6 pg (27.0-33.0); Mean Corpuscular Volume 88.8 fL (80.0-98.0); Mean Platelet Volume 11.9 fL (9.4-12.4); Platelet Count 112 X10*3/uL (160-400); Red Blood Count 3.04 X10*6/uL (4.60-5.80); Red Cell Distribution Width 12.9 % (11.0-16.0); White Blood Count 7.4 X10*3/uL (4.8-10.8)
[2024-09-19 06:34] LABS: Alanine Aminotransferase 17 U/L (0-40); Albumin Level 2.9 g/dL (3.5-5.0); Alkaline Phosphatase 42 U/L (39-117); Anion Gap 9 (12-20); Aspartate Amino Transferase 34 U/L (5-37); Bilirubin Total 0.4 mg/dL (0.0-1.0); Blood Urea Nitrogen 20 mg/dL (9-16); Calcium 7.9 mg/dL (8.4-10.2); Carbon Dioxide 26 mmol/L (22-29); Chloride 107 mmol/L (96-108); Creatinine Clr Calc Pharmacy 116.2; Estimated Glomerular Filt Rate > 60; Glucose Random 97 mg/dL (60-115); Potassium 3.6 mmol/L (3.3-5.1); Sodium 138 mmol/L (135-145); Total Protein 5.5 g/dL (6.5-8.0)
[2024-09-19 06:48] LABS: Procalcitonin 0.64 ng/mL
[2024-09-19 07:52] VITALS: BP 126/73; PULSE 94; RESP 16; TEMP 36.2; O2SAT 97
--- NOTE | 2024-09-19 08:30 | HO.POSTANES ---
Post Anesthesia Evaluation Post Anesthesia Evaluation Date of Service: 09/19/24 Vital Signs: Vital Signs Temp Pulse Resp BP Pulse Ox O2 Del Method 09/19/24 07:52 97.2 F 94 16 126/73 97 Room Air 09/19/24 03:49 97.1 F 89 16 146/77 H 99 Room Air Anesthesia: Monitored Mental Status: Awake Pain Control: Satisfactory Nausea/Vomiting: None Hydration: Adequate Anesthesia-Related Issues: No Anes. Related Issues
[2024-09-19] MEDS: 0.9 % Sodium Chloride Flush 3 ML SYRINGE IVFLUSH (09:16)
--- NOTE | 2024-09-19 09:36 | PM.HEMONCCN ---
Subjective - Subjective Chief complaint: Melena, diarrhea Patient: new to practice Consult date: 09/19/24 Primary Care Provider: None Physician Case Finisher Utilized?: No - Spanish Speaking HPI - Consult Narrative Reason for consult: Splenomegaly, thrombocytopenia Narrative: Branden Aguilar is a 69 year old male with PMH significant for PTSD, alcohol use disorder sober for over 9 years, not on home meds but has not followed with PCP in over 10 years?who presents to the ED with?black-colored and bloody stool since yesterday. Pt reports last night noticed that his stool was black in color and tarry. No BRBPR at that time. Earlier this morning pt awoke and felt lightheaded, dizzy, and weak. Fell while trying to walk to the bathroom, striking his left shoulder on the dresser. Pt notes that 2-1/2 weeks ago had flu-like symptoms with fever, chills, and myalgias. No cough or SOB. Symptoms resolved within 1 week from onset. Prior to this he reports no constitutional symptoms such as loss of appetite or weight loss. He has never undergone a screening colonoscopy. He lives at home with his , he recently retired and has custody of his 8-year-old granddaughter. He has never been told of abnormal blood counts. He denies any family history of cancer. He does not smoke or consume alcohol. In the s he was diagnosed with superficial thrombophlebitis, he he thinks he was on anticoagulation for about a week. At this time he feels a lot better. He denies any left upper quadrant pain, pleuritic chest pain, shortness of breath or cough. Review of Systems - Constitutional Reports as per HPI, Denies poor appetite, Denies weight loss - Cardiovascular Reports no additional cardiovascular complaints - Respiratory Reports no additional respiratory complaints - Gastrointestinal Reports no additional gastrointestinal complaints Oncology Screenings - ECOG Performance Status ECOG Performance Status: 0 PMFSH Medical History: Medical History (Last Reviewed 09/18/24 @ 09:47 by Richa Guidry MD) Alcohol use disorder PTSD (post-traumatic stress disorder) Social History: Social History (Last Reviewed 09/18/24 @ 09:47 by Richa Guidry MD) Living Situation History: Household Members: Spouse Housing: House Do you presently have visiting nurse or other home services: No Alcohol History Details: 1. How often do you have a drink containing alcohol?: a. Never 3. How often do you have six or more drinks on one occasion?: a. Never AUDIT-C Alcohol total score: 0 Currently Displaying Signs/Symptoms of Alcohol Withdrawal: No Tobacco History: Patient Tobacco Use Status: Never used Tobacco Smoked in Last 30 Days: No e-Cigarette/Vaping Use: Never Used Patient Interested in Nicotine Replacement: No Patient Given Instructions on How to Stop Smoking: No Second Hand Smoke Exposure: No Substance Use History: Use of substances other than those prescribed or required for medical reasons: No Substance Use Type Other:: has been clean and sober for over 9 years Currently Displaying Signs/Symptoms of Drug Intoxication Withdrawal: No Domestic Abuse History: Have you been hit, kicked, punched, or otherwise hurt by someone within the past year? If so, by whom?: No Do you feel safe in your current relationship?: Yes Is there a partner from a previous relationship who is making you feel unsafe now?: No Are you made to feel afraid or neglected: No Advance Directives: Advance Directives: No Advance Directives Information Provided: Yes Homicidal Assessment: Do you have a plan to hurt others: No Plan Nutrition Assessment: Recently lost weight without trying: Unsure Eating poorly because of decreased appetite: Yes Nutrition Risks: No Nutritional Risk Poor oral hygiene: No Occupation Assessmet: service: No Home Medications and Allergies Current Medications: Current Medications Acetaminophen (Acetaminophen 325 Mg Tablet) 650 mg PO Q6H PRN PRN Reason: Pain, Mild 1-3,fever,headache Calcium Carbonate (Calcium Carbonate 750 Mg Tab.Chew) 750 mg PO Q4H PRN PRN Reason: Heartburn Doxycycline Monohydrate (Doxycycline Monohydrate 100 Mg Capsule) 100 mg PO Q12H [facility] Stop: 09/24/24 18:59 Last Admin: 09/19/24 06:08 Dose: 100 mg Lactated Ringer's (Lr) 1,000 mls @ 0 mls/hr IV .Q0M [facility] Last Infusion: 09/17/24 12:37 Dose: Infused Magnesium Hydroxide (Milk Of Magnesia 30 Ml Oral.Susp) 30 ml PO DAILY PRN PRN Reason: Constipation Melatonin (Melatonin 3 Mg Tablet) 6 mg PO BEDTIME PRN PRN Reason: Insomnia Naloxone HCl (Naloxone Hcl 0.4 Mg/Ml Vial) 0.04 mg IVPUSH Q5M PRN PRN Reason: Excessive sedation or RR < 8 Ondansetron HCl (Ondansetron Hcl 4 Mg/2 Ml Vial) 4 mg IVPUSH Q8H PRN PRN Reason: Nausea and Vomiting Pantoprazole Sodium (Pantoprazole Sodium 40 Mg/10 Ml Vial) 40 mg IVPUSH BID@0630,1630 [facility] Last Admin: 09/19/24 05:50 Dose: 40 mg Sodium Chloride (0.9 % Sodium Chloride Flush 3 Ml Syringe) 3 ml IVFLUSH QSHIFT [facility] Last Admin: 09/19/24 09:16 Dose: 3 ml Home Medications ?Medication ?Instructions ?Recorded ?Confirmed ?Type No Known Home Meds 09/17/24 09/17/24 History Allergies Allergy/AdvReac Type Severity Reaction Status Date / Time No Known Allergies Allergy Verified 09/18/24 09:46 Physical Exam Vital signs: Vital Signs Temp 97.2 F 09/19/24 07:52 Pulse 94 09/19/24 07:52 Resp 16 09/19/24 07:52 BP 126/73 09/19/24 07:52 Pulse Ox 97 09/19/24 07:52 O2 Del Method Room Air 09/19/24 07:52 O2 Flow Rate 6 09/18/24 10:46 Intake & Output 09/18/24 09/19/24 09/19/24 18:59 06:59 18:59 Intake Total 560 / 2400 1840 / 2400 Balance 560 / 2400 1840 / 2400 Intake: Intake, Oral Amount 560 / 2400 1840 / 2400 Other: NPO Yes: morning Lunch % Eaten 100% Dinner % Eaten 100% Eating (Feeding) Ability Independent Independent Number of Unmeasured Voids 3 Urine Bathroom Urine Color Yellow Weight 95.6 kg - Constitutional Present: no acute distress, average body habitus - Routine HEENT Exam Head: Present: normal inspection Eye: Present: EOMI, PERRL - Routine Neck Exam Present: supple. Absent: lymphadenopathy - Routine Respiratory Exam Present: CTAB. Absent: accessory muscle use, wheezes - Routine Cardiovascular Exam Cardiovascular: Present: RRR, S1, S2 - Routine Abdominal Exam Present: soft. Absent: tenderness - Routine Extremities Exam Present: pulses intact. Absent: pedal edema - Routine Skin Exam Present: intact Hem/Onc Consult Result - Labs CBC & Chem 7: 09/19/24 05:46 09/19/24 05:46 Labs: Short CBC 09/18/24 09/19/24 Range/Units 12:15 05:46 WBC 5.3 7.4 (4.8-10.8) X10*3/uL Hgb 10.1 L 9.3 L (14.0-18.0) g/dl Hct 29.2 L 27.0 L (42.0-52.0) % Plt Count 80 L 112 L D (160-400) X10*3/uL BMP 09/18/24 09/19/24 12:15 05:46 Sodium 140 138 Potassium 3.6 3.6 Chloride 108 107 Carbon Dioxide 24 26 BUN 30 H 20 H Creatinine 0.81 0.67 Calcium 8.0 L 7.9 L Liver Function 09/18/24 09/19/24 Range/Units 12:15 05:46 Total Bilirubin 0.4 0.4 (0.0-1.0) mg/dL AST 36 34 (5-37) U/L ALT 24 17 (0-40) U/L Alkaline Phosphatase 42 42 (39-117) U/L Albumin 2.9 L 2.9 L (3.5-5.0) g/dL Assessment and Plan Patient Active problem list reviewed?: Yes (1) Thrombocytopenia Status: Acute Assessment and plan: 1. This is a 69-year-old male presenting with melena and found to have thrombocytopenia on splenomegaly. This followed after flu-like symptoms a few days prior. He does attest to being outdoors a lot and could have had a tick bite. Tick serology is pending. Anaplasma, ehrlichiosis is in the differential diagnosis. CT scan shows mild splenomegaly, 17.5 cm and fatty liver. He underwent EGD which showed duodenal ulcers and erosive gastritis. He has been started on PPI. 2. Anemia and thrombocytopenia. Low platelets secondary to probably infectious etiology and splenomegaly. Anemia secondary to GI bleeding. Counts are improving. Low suspicion at this time for any acute hematological problem. Patient can be followed up in Hematology as outpatient. I thank you for the consultation. - Time Spent With Patient Time Spent with Patient (in minutes): 30 Additional Coding: - Additional E/M codes Complex E/M visit Add On: CPT G2211
[2024-09-19 10:33] LABS: Lyme Blot 4.77 index
[2024-09-19 12:07] LABS: Lyme Abs Screen POSITIVE
[2024-09-19 12:50] VITALS: BP 126/71; PULSE 101; RESP 16; TEMP 36.3; O2SAT 97
--- NOTE | 2024-09-19 12:57 | HO.WOUND ---
Wound Consult: Initial 69yr old?[place] [facility] - See progress notes and H&P for detailed history.? Wound consult placed for Left shoulder.? Patient agreeable to assessment and photo documentation.? Patient reports the abrasion is a result of a fall he had prior to admission. He requests no topical dressing at this time reports mild tenderness when assessed - agreeable to skin prep application. Left Shoulder / Posterior Etiology: ?Abrasion / bruise?Present on Admission Wound Bed: superficial abrasion noted no crusting no drainage noted Drainage / Odor: None Edges: ?attached Tami wound: small light bruise noted ? No Induration, Fluctuance or Warmth noted Pain: tenderness reported Goals of Treatment: ? refused dressing agreeable to skin prep application No topical recommendations needed at this time. Re-consult wound care Nurse for wound deterioration or wound changes.
--- NOTE | 2024-09-19 13:01 | P.PNGI_ITS ---
Subjective Subjective Date of Service: 09/19/24 Interval History: no bleeding overnight tolerating diet Critical Care Time (minutes): 0 Physical Exam 2 Vital Signs: Vital Signs: Last Vital Signs Temp 97.4 F 09/19/24 12:50 Pulse 101 H 09/19/24 12:50 Resp 16 09/19/24 12:50 BP 126/71 09/19/24 12:50 Pulse Ox 97 09/19/24 12:50 O2 Del Method Room Air 09/19/24 12:50 O2 Flow Rate 6 09/18/24 10:46 BMI result Body Mass Index 33.0 GI: Other: abdomen is soft and nontender Objective Data Labs 09/19/24 05:46 09/19/24 05:46 Labs: Laboratory Results - last 24 hr 09/18/24 09/18/24 09/19/24 12:15 15:21 05:46 WBC 7.4 RBC 3.04 L Hgb 9.3 L Hct 27.0 L MCV 88.8 MCH 30.6 MCHC 34.4 RDW 12.9 Plt Count 112 L D MPV 11.9 Absolute Nucleated RBC 0.000 Nucleated RBC % (auto) 0.0 PT 11.9 D INR 1.0 Sodium 138 Potassium 3.6 Chloride 107 Carbon Dioxide 26 Anion Gap 9 L BUN 20 H Creatinine 0.67 Estim Creat Clear Calc 116.2 Estimated GFR > 60 Random Glucose 97 Calcium 7.9 L Total Bilirubin 0.4 AST 34 ALT 17 Alkaline Phosphatase 42 Total Protein 5.5 L Albumin 2.9 L Procalcitonin 0.64 Lyme Screen IgG & IgM POSITIVE Lyme Progressive Test 4.77 H Hep Bs Antigen Negative Hep Bs Antibody NONREACTIVE Hep B Core Total Ab Nonreactive Hepatitis C Ab (EIA) Nonreactive HIV 1&2 Ab/P24 Ag 4thGn Nonreactive Microbiology Microbiology Results: Microbiology 09/17/24 10:14 Blood - Venous Blood Culture - Preliminary No growth after 48 hours. 09/17/24 09:58 Blood - Venous Blood Culture - Preliminary No growth after 48 hours. Procedures Date of Service Date of Service: 09/19/24 Progress Note: A&P Assessment and plan (1) Melena: Status: Acute Assessment and Plan: s/p egd and control of hemorrhage doing well no bleeding hct stable allowing for iv fluids and equilibration. ok for c/c on high dose ppi f/u bx results and ov Time Spent With Patient Time: Total time managing care of this patient today ____ minutes. Quality Stroke Does the patient have a stroke diagnosis?: No VTE Prior VTE?: No VTE Risk Level:: Medical - moderate - high VTE Device Contraindication: N/A - Device Ordered VTE Drug Contraindication: Treatment Not Indicated
--- NOTE | 2024-09-19 14:15 | PM.DS ---
DS: Providers Provider Date of Service: 09/19/24 Date of admission: 09/17/24 14:24 Date of discharge: 09/19/24 Primary care physician: None Physician Consults: 09/17/24 17:14 Consult to Gastroenterology Routine Consulting Provider: Bill Ramos Reason for consultation: Melena since yesterday, ?UGIB 09/18/24 07:44 Consult to Wound Care Routine Reason for consultation: abrasion to posterior left shoulder 09/18/24 14:03 Consult to Hematology / Oncology Routine Consulting Provider: [facility] Oncology/Hematology Reason for consultation: splenomegaly, thrombocyoptenia but no cirrhosis DS: Diagnosis Discharge Diagnosis (1) Anemia due to gastrointestinal blood loss: Status: Acute (2) Duodenal ulcer: Status: Acute (3) Thrombocytopenia: Status: Acute (4) Splenomegaly: Status: Acute DS: Summary Hospital Course Hospital Course: From the history and physical by the admitting hospitalist, ERLINDA Jackson, 09/17/24: Pt is a 69-year-old male with a PMH significant for PTSD, alcohol use disorder sober for over 9 years, not on home meds but has not followed with PCP in over 10 years?who presents to the ED with?black-colored and bloody stool since yesterday. Pt reports last night noticed that his stool was black in color and tarry. No BRBPR at that time. Earlier this morning pt awoke and felt lightheaded, dizzy, and weak. Fell while trying to walk to the bathroom, striking his left shoulder on the dresser. This morning after awakening patient's stool ?looked more like blood? with a mixture of black and dark red. Pt had additional bowel movement where stool was systems technician in color and blood was red and pink. No abdominal pain. Pt denies any nausea, vomiting. Did experience some acid reflux-like symptoms over the past few days, which is abnormal for him. No fever, chills. Denies chest pain/pressure, palpitations. Currently no SOB or cough. No difficulty breathing. Pt notes that 2-1/2 weeks ago had flu-like symptoms with fever, chills, and myalgias. No cough or SOB. Symptoms resolved within 1 week from onset. In the ED pt was tachycardic up to 102, vitals otherwise stable and WNL. Labs were significant for stool positive for occult blood, H&H 11.9/33.8 (baseline unknown), PT 15.5, INR 1.4, bicarb 19, and BUN 42. No leukocytosis. No significant electrolyte abnormalities. Respiratory panel negative. CXR showed bibasilar subsegmental atelectasis vs scarring with possible airspace opacity in right lung base. CT?of head negative for acute intracranial abnormality. CT of abdomen and pelvis showing thickening of gastric antrum and pyloric region, possibly secondary to PUD. Also showed fatty liver, splenomegaly, possible ankylosing spoldylitis. EKG demonstrated sinus tachycardia of 104 without evidence of significant ST elevations depressions. Pt was treated in the ED with IVF, and pantoprazole IV. Pt is admitted to the hospital for treatment and further evaluation of melena concerning for UGIB. 69yo M with PTSD, AUD in remission [sober x9yr] presenting with melena, found to be anemic and thrombocyoptenic and with splenomegaly. He was admitted to the medical-surgical unit with Gastroenterology consultation. He was treated with IV PPI. EGD 09/[address] Bill Ramos showing duodenal ulcers x3 [1 treated with epinephrine + cautery] + erosive gastritis, biopsies taken. Hemoglobin stabilized around 9-10. Melena resolved. As for thrombocytopena and splenomegaly, HIV testing was negative and LDH normal. Suspicion was for tickborne illness and he was treated with doxycycline. Platelets improved from 60 to 112. He was discharged on doxycycline for 12 more days [total 14 days] and should repeat CBC in 2 weeks and follow up with Hematology in 1 month. Tickborne illness results are pending at the time of discharge [other than preliminary positive Lyme disease screen] and the patient will be called with the results. Time Attestation Discharge Coordination Time (in mins): 35 Quality: Safe Use of Opioids Does Pt have an Active Cancer Diagnosis on the Problem List?: No Quality: Stroke Does the patient have a stroke diagnosis?: No Physical Exam Vital Signs: Vital Signs: Last Vital Signs Temp 97.4 F 09/19/24 12:50 Pulse 101 H 09/19/24 12:50 Resp 16 09/19/24 12:50 BP 126/71 09/19/24 12:50 Pulse Ox 97 09/19/24 12:50 O2 Del Method Room Air 09/19/24 12:50 O2 Flow Rate 6 09/18/24 10:46 BMI result Body Mass Index 33.0 Gen: in no acute distress HEENT: sclera anicteric, moist mucus membranes Neck: supple Lungs: clear to auscultation bilaterally Heart: regular rate and rhythm, no murmurs Abd: soft, non-tender, non-distended, spleen tip palpable Ext: no edema Skin: warm/well-perfused Neuro: alert and oriented x3, no focal findings Psych: appropriate affect DS: Data Data Completed and Pending Completed studies during hospitalization [Text1]: Laboratory Results WBC 7.4 X10*3/uL (4.8-10.8) 09/19/24 05:46 RBC 3.04 X10*6/uL (4.60-5.80) L 09/19/24 05:46 Hgb 9.3 g/dl (14.0-18.0) L 09/19/24 05:46 Hct 27.0 % (42.0-52.0) L 09/19/24 05:46 MCV 88.8 fL (80.0-98.0) 09/19/24 05:46 MCH 30.6 pg (27.0-33.0) 09/19/24 05:46 MCHC 34.4 g/dl (31.0-36.0) 09/19/24 05:46 RDW 12.9 % (11.0-16.0) 09/19/24 05:46 Plt Count 112 X10*3/uL (160-400) L D 09/19/24 05:46 MPV 11.9 fL (9.4-12.4) 09/19/24 05:46 Immature Gran % (Auto) 0.5 % (0.0-0.4) H 09/17/24 09:57 Neut % (Auto) 69.2 % (45-73) 09/17/24 09:57 Lymph % (Auto) 20.3 % (20-40) 09/17/24 09:57 [place] % (Auto) 9.8 % (2-11) 09/17/24 09:57 Eos % (Auto) 0.0 % (0-4) 09/17/24 09:57 Baso % (Auto) 0.2 % (0-2) 09/17/24 09:57 Lymph # (Auto) 1.3 X10*3/uL (1.2-4.9) 09/17/24 09:57 [place] # (Auto) 0.6 X10*3/uL (0.1-1.2) 09/17/24 09:57 Eos # (Auto) 0.0 X10*3/uL (0.0-0.4) 09/17/24 09:57 Baso # (Auto) 0.0 X10*3/uL (0.0-0.2) 09/17/24 09:57 Abs Immat Gran (auto) 0.03 X10*3/uL (0.00-0.03) 09/17/24 09:57 Absolute Neuts (auto) 4.3 x10*3/uL (2.0-8.3) 09/17/24 09:57 Absolute Nucleated RBC 0.000 X10*3/uL (0.0-0.012) 09/19/24 05:46 Nucleated RBC % (auto) 0.0 /100WBC (0.0-0.2) 09/19/24 05:46 Smear Tech's Comments VERIFIED 09/17/24 09:57 PT 11.9 SEC (10.9-12.4) D 09/19/24 05:46 INR 1.0 (0.9-1.1) 09/19/24 05:46 Sodium 138 mmol/L (135-145) 09/19/24 05:46 Potassium 3.6 mmol/L (3.3-5.1) 09/19/24 05:46 Chloride 107 mmol/L (96-108) 09/19/24 05:46 Carbon Dioxide 26 mmol/L (22-29) 09/19/24 05:46 Anion Gap 9 (12-20) L 09/19/24 05:46 BUN 20 mg/dL (9-16) H 09/19/24 05:46 Creatinine 0.67 mg/dL (0.5-1.4) 09/19/24 05:46 Estim Creat Clear Calc 116.2 09/19/24 05:46 Estimated GFR > 60 09/19/24 05:46 Random Glucose 97 mg/dL (60-115) 09/19/24 05:46 Lactic Acid 1.8 mmol/L (0.5-2.0) 09/17/24 09:57 Calcium 7.9 mg/dL (8.4-10.2) L 09/19/24 05:46 Total Bilirubin 0.4 mg/dL (0.0-1.0) 09/19/24 05:46 AST 34 U/L (5-37) 09/19/24 05:46 ALT 17 U/L (0-40) 09/19/24 05:46 Alkaline Phosphatase 42 U/L (39-117) 09/19/24 05:46 Lactate Dehydrogenase 214 U/L (118-273) 09/18/24 12:15 Troponin I High Sens 3.6 ng/L (<3.5-35.0) 09/17/24 10:41 Total Protein 5.5 g/dL (6.5-8.0) L 09/19/24 05:46 Albumin 2.9 g/dL (3.5-5.0) L 09/19/24 05:46 Procalcitonin 0.64 ng/mL 09/19/24 05:46 Stool Occult Blood POSITIVE (NEGATIVE) 09/17/24 10:54 Respiratory Panel Denson See Note 09/17/24 10:53 Adenovirus (Rapid PCR) Not Detected (Not Detect.) 09/17/24 10:53 B.pert (TEM-PCR) Not Detected (Not Detect.) 09/17/24 10:53 B.parapertussis DNA PCR Not Detected (Not Detect.) 09/17/24 10:53 Lyme Screen IgG & IgM POSITIVE 09/18/24 15:21 Lyme Progressive Test 4.77 index H 09/18/24 15:21 C. pneumoniae DNA (PCR) Not Detected (Not Detect.) 09/17/24 10:53 Coronavirus OC43 (PCR) Not Detected (Not Detect.) 09/17/24 10:53 Coronavirus HKU1 (PCR) Not Detected (Not Detect.) 09/17/24 10:53 Coronavirus 229E (PCR) Not Detected (Not Detect.) 09/17/24 10:53 Coronavirus NL63 (PCR) Not Detected (Not Detect.) 09/17/24 10:53 Hep Bs Antigen Negative (Negative) 09/18/24 12:15 Hep Bs Antibody NONREACTIVE (Nonreactive) 09/18/24 12:15 Hep B Core Total Ab Nonreactive (Nonreactive) 09/18/24 12:15 Hepatitis C Ab (EIA) Nonreactive (Nonreactive) 09/18/24 12:15 HIV 1&2 Ab/P24 Ag 4thGn Nonreactive (Nonreactive) 09/18/24 12:15 Human Metapneumovir PCR Not Detected (Not Detect.) 09/17/24 10:53 Influenza A (RT-PCR) Not Detected (Not Detect.) 09/17/24 10:53 Influenza A (H1) PCR Not Detected (Not Detect.) 09/17/24 10:53 Influ A (H1/09) PCR Not Detected (Not Detect.) 09/17/24 10:53 Influenza A (H3) PCR Not Detected (Not Detect.) 09/17/24 10:53 Influenza B (RT-PCR) Not Detected (Not Detect.) 09/17/24 10:53 M. pneumoniae (PCR) Not Detected (Not Detect.) 09/17/24 10:53 Parainfluenza 1 (PCR) Not Detected (Not Detect.) 09/17/24 10:53 Parainfluenza 2 (PCR) Not Detected (Not Detect.) 09/17/24 10:53 Parainfluenza 3 (PCR) Not Detected (Not Detect.) 09/17/24 10:53 Parainfluenza 4 (PCR) Not Detected (Not Detect.) 09/17/24 10:53 RSV (PCR) Not Detected (Not Detect.) 09/17/24 10:53 Entero/Rhino (PCR) Not Detected (Not Detect.) 09/17/24 10:53 SARS-CoV-2 RNA (RT-PCR) Not Detected (Not Detect.) 09/17/24 10:53 Blood Type O Positive 09/17/24 10:41 Antibody Screen NEGATIVE 09/17/24 10:41 Impressions Chest X-Ray 09/17/24 09:54 IMPRESSION: Bibasilar subsegmental atelectasis versus scarring. Possible additional airspace opacity at the right lung base. PA and lateral views are recommended when the patient is able. Electronically signed by: Ludwig Thomas MD 09/17/2024 10:43 AM EDT Abdomen/Pelvis CT 09/17/24 10:36 IMPRESSION: The gastric antrum and pyloric region appears thickened. This could be due to nondistention, but underlying peptic ulcer disease is not ruled out. Splenomegaly Fatty liver There is bony fusion of the upper right SI joint and the tips of the spinous processes at the thoracolumbar junction with evidence of syndesmophytes and bridging osteophytes in the thoracic lumbar spine raising question of ankylosing spondylitis. Fleischner guidelines were followed. Electronically signed by: Jerman Levine MD 09/17/2024 12:53 PM EDT RP Head CT 09/17/24 10:39 IMPRESSION: No acute intracranial abnormality. Electronically signed by: Ludwig Thomas MD 09/17/2024 12:51 PM EDT RP Pending studies at discharge: Pending at discharge 09/18/24 10:37 Surgical [PTH] Routine Discharge Plan Discharge Anticipated Discharge Date/Time: 09/19/24 12:29 Patient Disposition: Home, Self-Care Discharge Diagnosis: GI bleeding due to duodenal ulcers thrombocytopenia and splenomegaly, probable tickborne infection Ref[facility]: [facility] Bill Ramos MD [Physician] - 2 Weeks Sydney Josue MD [Physician] - 1 Month Physician,None [Primary Care Provider] - 1 Week Discharge Medications: New doxycycline monohydrate 100 mg Capsule 100 mg PO BID Qty: 24 0RF omeprazole 20 mg capsule,delayed release(DR/EC) 20 mg PO BID Qty: 60 0RF ferrous sulfate 325 mg (65 mg iron) tablet 325 mg PO DAILY Qty: 30 0RF Discharge Orders: Discharge Order (Routine); Ordered 09/19/24 Ordered By: Arlet Villagomez Diet: Advance to usual diet Activity on Discharge: As tolerated Stand Alone Forms: Patient Portal Discharge page Print Language: Northern Irish Other Ambulatory Orders: Complete Blood Count Auto Diff (Routine) Timeframe: 2 Weeks Facility: [facility] - Location: Laboratory Ordered By: Arlet Villagomez Care Plan Goals: resolution of GI bleeding Health Concerns: GI bleeding due to duodenal ulcers thrombocytopenia and splenomegaly, probable tickborne infection Plan of Treatment: take omeprazole 20 mg twice daily follow up with Dr Ramos from [facility] in 2-3 weeks for biopsy results take iron as prescribed; eat iron-rich foods we will call you with results of tickborne infection testing but in meanwhile, take doxycycline 100 mg twice daily for 12 more days repeat CBC in 2 weeks, follow up with Hematology in 1 month establish primary care as soon as possible Assessment: See Discharge Summary. Discharge Date/Time: 09/19/24 13:25
--- NOTE | 2024-09-19 14:23 | MHC.CM.PN ---
Pt is medically cleared for discharge home self-care, pts to transport him home.
[2024-09-19 23:43] LABS: A. Phagocytphilium DNA,RT-PCR DETECTED (NOT DETECTED); Babesia Microti DNA, RT-PCR NOT DETECTED (NOT DETECTED); Borrelia Miyamotoi,DNA RT-PCR NOT DETECTED (NOT DETECTED); E.Chaffeensis DNA RT-PCR NOT DETECTED (NOT DETECTED); Lyme(Borrelia ssp)DNA RT-PCR NOT DETECTED (NOT DETECTED)
[2024-09-23 13:03] LABS: 18 KD (IgG) Band REACTIVE; 23 KD (IgG) Band NON-REACTIVE; 23 KD (IgM) Band NON-REACTIVE; 28 KD (IgG) Band REACTIVE; 30 KD (IgG) Band REACTIVE; 39 KD (IgM) Band NON-REACTIVE; 39KD (IgG) Band REACTIVE; 41 KD (IgM) Band NON-REACTIVE; 41KD (IgG) Band REACTIVE; 45 KD (IgG) Band REACTIVE; 58 KD (IgG) Band REACTIVE; 66 KD (IgG) Band REACTIVE; 93 KD (IgG) Band REACTIVE; Lyme IgG Blot Interp POSITIVE (NEGATIVE); Lyme IgM Blot Interp NEGATIVE (NEGATIVE)
[2024-09-24 14:38] LABS: E. Chaffeensis Ab IgG <1:64 (<1:64); E. Chaffeensis Ab IgM <1:20 (<1:20)
[2024-09-25 11:33] LABS: Babesia IgG <1:64 titer (<1:64); Babesia IgM <1:20 titer (<1:20)
== END 2024-09-19 13:25 | disposition home or self-care (01) | DRG 378 ==
LOC: HO.ED 14:54 → HO.EDOVER 15:05 → HO.S3 19:09
PROVIDERS: Internal Medicine Gastroenterology; Admitting Provider Student in an Organized Health Care Education/Training Program; Emergency Provider Emergency Medicine; Visit Provider Family Medicine
PROC: 0DB78ZX Excision of Stomach, Pylorus, Via Natural or Artificial Opening Endoscopic, Diagnostic (ICD-10-PCS; principal; 2024-09-18 10:00)
DX: K26.4 Chronic or unspecified duodenal ulcer with hemorrhage (principal); A69.20 Lyme disease, unspecified; D62 Acute posthemorrhagic anemia; A79.82 Anaplasmosis [A. phagocytophilum]; F10.91 Alcohol use, unspecified, in remission; D69.59 Other secondary thrombocytopenia; K76.0 Fatty (change of) liver, not elsewhere classified; K29.71 Gastritis, unspecified, with bleeding; Z20.822 Contact with and (suspected) exposure to COVID-19
CPT/HCPCS: 36415; 70450; 71045; 74177; 80053; 82272; 83605; 83615; 84145; 84484; 85014; 85018; 85025; 85027; 85610; 86617; 86618; 86666; 86704; 86706; 86753; 86803; 86850; 86900; 86901; 87040; 87207; 87340; 87389; 87468; 87469; 87478; 87484; 87633; 87798; 88305; 88313; 88342; 93005; 99285; C1889; J0171; J2371; J2470; J2704; J7120; Q9967

== ENCOUNTER → 2024-09-17 09:53 | Outpatient (BNV) | payer MEDICARE, SELFPAY | PROVIDERS: Admitting Provider Student in an Organized Health Care Education/Training Program; Emergency Provider Emergency Medicine; Visit Provider Internal Medicine | DX: R00.0 Tachycardia, unspecified (principal) | CPT/HCPCS: 93010 ==

== ENCOUNTER → 2024-09-17 09:54 | Outpatient (BNV) | payer MEDICARE, BC, SELFPAY | PROVIDERS: Emergency Provider Emergency Medicine; Visit Provider Radiology Diagnostic Radiology | DX: R06.02 Shortness of breath (principal); K92.1 Melena; Z03.89 Encounter for observation for other suspected diseases and conditions ruled out | CPT/HCPCS: 70450; 71045 ==

== ENCOUNTER → 2024-09-17 14:24 | Outpatient (BNV) | payer MEDICARE, SELFPAY | PROVIDERS: Admitting Provider Student in an Organized Health Care Education/Training Program; Emergency Provider Emergency Medicine; Visit Provider Internal Medicine | DX: D69.6 Thrombocytopenia, unspecified (principal) | CPT/HCPCS: 99222 ==

== ENCOUNTER → 2024-09-17 14:24 | Outpatient (BNV) | payer MEDICARE, SELFPAY | PROVIDERS: Admitting Provider Student in an Organized Health Care Education/Training Program; Emergency Provider Emergency Medicine; Visit Provider Student in an Organized Health Care Education/Training Program | DX: D50.0 Iron deficiency anemia secondary to blood loss (chronic) (principal); K26.9 Duodenal ulcer, unspecified as acute or chronic, without hemorrhage or perforation; D69.6 Thrombocytopenia, unspecified; R16.1 Splenomegaly, not elsewhere classified | CPT/HCPCS: 99223; 99232; 99239 ==

== ENCOUNTER → 2024-10-07 09:50 | Outpatient (BNV) | payer MEDICARE, SELFPAY | PROVIDERS: Visit Provider Internal Medicine | DX: D69.6 Thrombocytopenia, unspecified (principal) | CPT/HCPCS: 99214 ==